=== PATIENT | female | born 1995 | race Caucasian/White ===

== ENCOUNTER 2017-12-19 11:59 | Emergency (ER) | payer SELFPAY ==
[2017-12-19 14:20] VITALS: BP 137/74
--- NOTE | 2017-12-19 14:47 | EDPHY ---
General Time Seen by Provider: 12/19/17 14:36 Narrative: CHIEF COMPLAINT: Cough, sore throat and vomiting HISTORY OF PRESENT ILLNESS: Patient presents by private vehicle with complaints of cough, sore throat vomiting. Symptoms started approximately 2 weeks ago. A dry,"hacking cough." Occasionally productive. She also has developed a sore throat. She says the vomiting is only after she has been coughing for minute or so. She never has spontaneous vomiting. She has been tolerating liquids and solids in between. She does have worsening symptoms overnight. Minimal improvement throughout the day. She has not tried any medications because she recently had a positive test. She does not know how far along she has because she has very irregular periods. She thinks she is approximately 2-3 months. She has no chest pain or shortness of breath. She has no abdominal pain. No vaginal bleeding or discharge. No pelvic pain. No other associated complaints or modifying factors. REVIEW OF SYSTEMS: 10 systems were reviewed and negative with the exception of the elements mentioned in the history of present illness. PCP: None currently SPECIALISTS: None PAST MEDICAL HISTORY: Denies any medical diagnoses PAST SURGICAL HISTORY: Denies surgical history SOCIAL HISTORY: Nonsmoker. Lives independently. Works locally FAMILY HISTORY: Noncontributory EXAMINATION: General Appearance: Alert, no distress. Well appearing. Conversing in full sentences. Head: normocephalic, atraumatic Eyes: Pupils equal and round, no conjunctival pallor or injection ENT, Mouth: Mucous membranes moist. Airway is widely patent. Uvula is midline with no erythema or edema. Neck: Normal inspection, supple, non-tender. No meningismus Respiratory: Lungs are clear to auscultation. No rhonchi. No wheezing. No crackles. Cardiovascular: Regular rate and rhythm Gastrointestinal: Abdomen is soft and nontender no tympany rigidity. Back: non-tender, no bony abnormalities Neurological: A&O, nonfocal, normal gait Skin: Warm and dry, no rash Extremities: Nontender, no pedal edema Psychiatric: Mood and affect normal DIFFERENTIAL DIAGNOSES: Including but not limited to acute bronchitis, asthma, pneumonia, pneumonitis, bronchiolitis, PE, strep pharyngitis, viral pharyngitis MDM: 2:40 p.m. Acute upper respiratory infection with than RPP that was ordered prior to my examination is positive for rhino virus. Negative for strep. Negative for influenza. Vital signs are within normal limits. She is well-appearing. She is nontoxic. She does not require any supplemental oxygen. I do not feel a chest x-ray is beneficial as we have a positive rhino virus RPP. I do not feel that pneumonia is likely. We discussed symptomatic medications including Tylenol, albuterol in short course of antitussive. We discuss follow up with primary care physician and Ob physician for care. She is already taking vitamins. I stressed the importance of hydration. We discussed returning here for any onset of chest pain, shortness of breath or abdominal pain. She is comfortable this plan. She is well-appearing and discharged home stable condition. SUPERVISION: This patient was independently evaluated without direct involvement of or examination by the attending physician. CONSULTATION: None - History Smoking Status: Never smoked - Objective Vital Signs: Initial Vital Signs Temperature (C) 98.2 F 12/19/17 12:08 Heart Rate 81 12/19/17 12:08 Respiratory Rate 16 12/19/17 12:08 Blood Pressure 124/89 H 12/19/17 12:08 O2 Sat (%) 96 12/19/17 12:08 O2 Delivery Mode Room Air Allergies/Adverse Reactions: diphenhydramine [From Benadryl] Allergy (Verified 12/19/17 12:15) Home Medications: Medication Instructions Recorded Albuterol [Proventil Inhaler HFA 1 - 2 puffs IH Q4H PRN #1 mdi 12/19/17 (*)] Codeine Phosphate/Guaifenesin 10 ml PO Q8 PRN #120 ml 12/19/17 [Codeine-Guaifen 10-100 mg/5 ml] 12/19/17 Promethazine HCl [Phenergan 25mg 25 mg PO Q8 PRN #12 tab 12/19/17 (*)] Microbiology Results: MICROBIOLOGY 12/19/17 12:30 Nasal, Sinus - Swab Respiratory Panel (PCR) - Final Human Rhinovirus/Enterovirus Departure - Departure Disposition: Home, Routine, Self-Care Clinical Impression: Acute upper respiratory infection, Post-tussive emesis Qualifiers: Weeks of gestation: less than 8 weeks Qualified Code(s): Z3A.01 - Less than 8 weeks gestation of Condition: Good Instructions: Promethazine (By mouth), Albuterol (By breathing), Narcotic- Antitussive/Expectorant (By mouth), Upper Respiratory Infection (ED), Acute Bronchitis (ED) Additional Instructions: 1. Tylenol 500-650 mg every 6-8 hours as needed 2. Albuterol inhaler as prescribed as needed for wheezing or shortness of breath 3. Cough medication as prescribed as needed. [place] this for nighttime only please 4. Promethazine as prescribed for nausea as needed and to help induce sleep 5. Contact the on-call primary care physician and OB physicians to establish care 6. ED precautions for abdominal pain, vaginal pain, vaginal bleeding or intolerance of intake by mouth Referrals: Pierce Andrews MD [Medical Doctor] - As per Instructions Alana Michelle MD [[facility] [place] Primary Care Provider] - As per Instructions Stand Alone Forms: Work Excuse Prescriptions: Albuterol [Proventil Inhaler HFA (*)] 1 - 2 puffs IH Q4H PRN #1 mdi PRN Reason: Short Of Breath/Dyspnea Codeine Phosphate/Guaifenesin [Codeine-Guaifen 10-100 mg/5 ml] 10 ml PO Q8 PRN # 120 ml PRN Reason: Cough, Mild Promethazine HCl [Phenergan 25mg (*)] 25 mg PO Q8 PRN #12 tab PRN Reason: Nausea/Vomiting, Use 1st
== END 2017-12-19 15:02 | disposition home or self-care (01) ==
DX: B34.1 Enterovirus infection, unspecified (principal)